=== PATIENT | male | born 1970 | race Caucasian/White ===

== ENCOUNTER 2022-04-07 09:23 | Emergency (ER) | payer OTHER ==
[~2022-04-07] VITALS: Ht 190.5 cm; Wt 117.9 kg
[2022-04-07] MEDS ORDERED: LEVOFLOXACIN 500 MG TABLET PO SCH (10:00)
[2022-04-07] MEDS ORDERED: AMOX/CLAV 875/125MG TAB PO ONE (10:00)
[2022-04-07] MEDS ORDERED: BACITRACIN 28.4 GM OINT TP ONE (10:00)
[2022-04-07] MEDS ORDERED: NEOMY SULF/BACITRA/POLYMYXIN B 1 EACH PACKET TP ONE (10:05)
[2022-04-07] MEDS ORDERED: AMOX-427 PO (10:55)
[2022-04-07] MEDS ORDERED: IBUP-2070 PO (10:55)
[2022-04-07] MEDS ORDERED: LEVO750T46 PO (10:55)
[2022-04-07 11:05] VITALS: BP 115/78
== END 2022-04-07 11:14 | disposition home or self-care (01) ==
LOC: EDH 09:23
DX: S81.851A Open bite, right lower leg, initial encounter (principal); E78.00 Pure hypercholesterolemia, unspecified; I10 Essential (primary) hypertension; Z79.1 Long term (current) use of non-steroidal anti-inflammatories (NSAID); W54.0XXA Bitten by dog, initial encounter; X58.XXXA Exposure to other specified factors, initial encounter; Y93.89 Activity, other specified; Y92.89 Other specified places as the place of occurrence of the external cause; Y99.8 Other external cause status
CPT/HCPCS: 73590